=== PATIENT | male | born 1940 | race Caucasian/White ===

== ENCOUNTER → 2016-09-30 | Day surgery (SDC) | payer MEDICARE, OTHER ==
[~2016-09-30] VITALS: Ht 172.7 cm; Wt 69.4 kg
[~2016-09-30] MED LIST: 0.9% Sodium Chloride 1,000 ML IV SCH; ASPI-973 PO; CEPH500C PO; COLE625T PO; CYAN-2 SL; EZET10TA PO; LIP40 PO; LISI10TA PO; LUTE20TA PO; METO25TA99 PO; OMEG500C PO; Sodium Chloride LOK Flush 10 mL Syringe IV PRN; UBID100T7 PO; fentaNYL-PF 50 mCg/mL 2 mL Inj IVPUSH PRN
[2016-09-30 09:50] VITALS: BP 122/67; PULSE 72; RESP 16; O2SAT 97
[2016-09-30 10:48] VITALS: BP 109/65; PULSE 58; RESP 16; O2SAT 100
[2016-09-30 10:58] VITALS: BP 88/72; PULSE 66; RESP 16; O2SAT 100
[2016-09-30 11:01] VITALS: BP 95/68; PULSE 63; RESP 16; O2SAT 99
--- NOTE | 2016-09-30 11:11 | ENDO ---
[address] [address] ENDOSCOPY PROCEDURE PATIENT: ADELAIDA CLOUD : 1940 MR#: [id number] ADMIT: 09/30/2016 JOB ID: [id number] DATE: 09/30/2016 PRIMARY PROVIDER: Virgil Gardner MD PROCEDURE: Colonoscopy. INDICATIONS: A 76-year-old male with a personal history of colon polyps, returning for surveillance. EQUIPMENT: [employer]-H180-AL. SEDATION: 3 mg Versed and 75 mcg fentanyl. COMPLICATIONS: None identified. BOWEL PREPARATION: Fair, adequate exam. PROCEDURE INFORMATION: After the risks and benefits were explained, written and verbal informed consent was obtained. The patient was brought into the endoscopy suite and placed into the left lateral decubitus position. Sedation was achieved using the above-stated medications with the addition of oxygen via nasal cannula. A digital rectal examination was accomplished. No significant pathology appreciated apart from some moderate internal hemorrhoids. The scope was introduced into the rectum and advanced under direct visualization to the level of the cecum, as identified by the appendiceal orifice and ileocecal valve. The scope was slowly withdrawn to carefully examine the mucosa for any defects or lesions. Retroflexed views were avoided in the rectum. Multiple direct views were made through the dentate line for exclusion of pathology. The colon was decompressed, the scope removed from the patient who tolerated the procedure well. FINDINGS: No significant polyps, mass lesions, or inflammatory features identified throughout. The patient had fairly extensive sigmoid diverticulosis. ENDOSCOPIC DIAGNOSES: 1. Diverticulosis. 2. Hemorrhoids. RECOMMENDATIONS: Repeat colonoscopy five years considering personal history of colon polyps.
== END | disposition home or self-care (01) ==
LOC: END 00:20
PROVIDERS: ATTEND Internal Medicine Gastroenterology
DX: Z12.11 Encounter for screening for malignant neoplasm of colon (principal); Z86.010 Personal history of colon polyps; K57.30 Diverticulosis of large intestine without perforation or abscess without bleeding; K64.9 Unspecified hemorrhoids; I10 Essential (primary) hypertension; I25.10 Atherosclerotic heart disease of native coronary artery without angina pectoris; I45.10 Unspecified right bundle-branch block; E78.5 Hyperlipidemia, unspecified; Z85.828 Personal history of other malignant neoplasm of skin; Z95.1 Presence of aortocoronary bypass graft; Z96.642 Presence of left artificial hip joint; Z79.82 Long term (current) use of aspirin
CPT/HCPCS: G0105; G0500; J2250; J3010; J7030